=== PATIENT | male | born 1960 | race Caucasian/White ===

== ENCOUNTER 2016-10-09 06:00 | Day surgery (SDC) | payer OTHER ==
[2016-10-08 16:38] LABS: BASOPHILS 0.3 % (0-2); EOSINOPHILS 2.5 % (0-7); HEMATOCRIT 45.5 % (42.0-54.0); HEMOGLOBIN 15.4 g/dL (13.5-17.5); IMMATURE GRANULOCYTES 0.1 % (0-5); LYMPHOCYTES 30.3 % (15-50); MCH 30.7 pg (26.0-34.0); MCHC 33.8 g/dL (31.0-37.0); MCV 90.6 fL (80.0-100.0); MEAN PLATELET VOLUME 9.2 fL (7.4-10.4); MONOCYTES 8.2 % (2-11); NEUTROPHILS 58.6 % (40-80); PLATELET COUNT 247 10x3/uL (130-400); RBC 5.02 10x6/uL (4.20-6.10); RDW 12.2 % (11.5-14.5); WBC 7.1 10x3/uL (4.8-10.8)
[2016-10-08 17:04] LABS: CALC OSMOLALITY 276 mosm/kg (275-300); CALCIUM 8.9 mg/dL (8.5-10.1); CARBON DIOXIDE 28.8 mmol/L (21.0-32.0); CHLORIDE - SERUM 103 mmol/L (98-107); GLUCOSE 91 mg/dL (74-106); SODIUM 139 mmol/L (136-145); UREA NITROGEN 11 mg/dL (7-18); eGFR NON AFRICAN AMERICAN 82 mL/min (90-120)
[~2016-10-09] VITALS: Ht 177.8 cm; Wt 71.7 kg
--- NOTE | ~2016-10-09 | OP ---
PATIENT NAME: CHIN JARAMILLO MEDICAL RECORD: [id number] :60 LOCATION:D.OPS ADMISSION DATE: SURGEON: NASIR PERSON MD DATE OF OPERATION: 10/09/2016 PREOPERATIVE DIAGNOSIS: Recurrent right inguinal hernia. POSTOPERATIVE DIAGNOSIS: Recurrent right inguinal hernia. PROCEDURE: Right inguinal hernia repair with medium PHS mesh. SURGEON: Nasir Person MD. REPORT OF PROCEDURE: The patient's left groin was prepped and draped in sterile fashion. The previous oblique incision was made overlying the inguinal ligament. Electrocautery was used to dissect through the subcutaneous tissue to the external oblique fascia. This fascia was incised with electrocautery and opened up to the external ring. There was some scar tissue present from previous inguinal hernia repair without mesh. The sutures in place were cut free. At this point, we were able to dissect up the patient's spermatic cord and place a [place] around it. An indirect hernia defect, a little over a centimeter in size was noted. This was fat-containing. We dissected free the fatty tissue and dunked it back into the peritoneal cavity. We opened up the preperitoneal space of Retzius and inserted a medium PHS mesh. This was sutured down on all 4 sides using interrupted 0 Vicryls. We inspected the area to see if there was evidence of an ilioinguinal nerve and I never found this. The mesh was irrigated out with normal saline and care was taken to make sure there was no sign of any bleeding. The external oblique fascia was then closed with running 2-0 Vicryl, Dany's was closed with interrupted 3-0 Vicryl and the skin was closed with running subcutaneous 5-0 Monocryl. A 10 mL of 0.25% Marcaine with epinephrine were infused into the surrounding tissues and the wounds were dressed appropriately. COMPLICATIONS: None. CONDITION: Stable. ANESTHESIA: General endotracheal and local. BLOOD LOSS: Minimal. TRANSINT:[id number] Voice Confirmation ID: [id number] DOCUMENT ID: [id number] NASIR PERSON MD CC: NOE JEAN-BAPTISTE MD [id number] DICTATION DATE: 10/09/16 0843 SAMPLE COORDINATOR: 10/09/16 1048 [facility] [address] [place] [address]
[2016-10-09 05:48] VITALS: BP 120/67; Ht 177.8 cm; Wt 71.7 kg
[2016-10-09] MEDS ORDERED: HYDROCODONE-APA1 TAB PO (08:39)
== END 2016-10-09 11:15 | disposition home or self-care (01) ==
LOC: D.OPS 06:00
PROVIDERS: Surgery
DX: K40.90 Unilateral inguinal hernia, without obstruction or gangrene, not specified as recurrent (principal); Z01.812 Encounter for preprocedural laboratory examination

== ENCOUNTER → 2018-08-09 15:28 | Outpatient (CLI) | payer BC ==
[2016-10-09 05:48] VITALS: BMI 22.7
[~2018-08-09 15:28] MED LIST: HYDROCODONE-APA1 TAB PO
[2018-08-09 15:37] LABS: BASOPHILS 0.2 % (0-2); HEMATOCRIT 43.2 % (42.0-54.0); IMMATURE GRANULOCYTES 0.3 % (0-5); LYMPHOCYTES 9.4 % (15-50); MCH 30.7 pg (26.0-34.0); MCHC 34.7 g/dL (31.0-37.0); MCV 88.5 fL (80.0-100.0); MEAN PLATELET VOLUME 8.9 fL (7.4-10.4); MONOCYTES 8.5 % (2-11); NEUTROPHILS 79.6 % (40-80); RBC 4.88 10x6/uL (4.20-6.10); RDW 13.4 % (11.5-14.5); WBC 12.9 10x3/uL (4.8-10.8)
[2018-08-09 15:39] LABS: PLATELET COUNT 132 10x3/uL (130-400)
== END | disposition home or self-care (01) ==
LOC: D.LABREF 15:28
DX: D69.3 Immune thrombocytopenic purpura (principal)

== ENCOUNTER → 2018-09-20 18:21 | Outpatient (CLI) | payer BC ==
[2016-10-09 05:48] VITALS: BMI 22.7
[2018-09-20 19:13] LABS: BASOPHILS 0.2 % (0-2); EOSINOPHILS 0.2 % (0-7); HEMATOCRIT 42.7 % (42.0-54.0); HEMOGLOBIN 14.6 g/dL (13.5-17.5); IMMATURE GRANULOCYTES 0.5 % (0-5); LYMPHOCYTES 10.9 % (15-50); MCH 30.5 pg (26.0-34.0); MCHC 34.2 g/dL (31.0-37.0); MCV 89.1 fL (80.0-100.0); MEAN PLATELET VOLUME 12.1 fL (7.4-10.4); MONOCYTES 6.5 % (2-11); NEUTROPHILS 81.7 % (40-80); RBC 4.79 10x6/uL (4.20-6.10); RDW 13.5 % (11.5-14.5); WBC 13.2 10x3/uL (4.8-10.8)
[2018-09-20 19:54] LABS: PLATELET COUNT 21 10x3/uL (130-400)
[2018-09-20 20:06] LABS: PLATELET ESTIMATE DECREASED
== END | disposition home or self-care (01) ==
LOC: D.LABREF 18:21
DX: D69.3 Immune thrombocytopenic purpura (principal)

== ENCOUNTER → 2018-09-27 16:52 | Outpatient (CLI) | payer BC ==
[2016-10-09 05:48] VITALS: BMI 22.7
[2018-09-27 17:08] LABS: BASOPHILS 0.1 % (0-2); EOSINOPHILS 0.2 % (0-7); HEMATOCRIT 41.1 % (42.0-54.0); IMMATURE GRANULOCYTES 0.3 % (0-5); LYMPHOCYTES 6.4 % (15-50); MCH 30.3 pg (26.0-34.0); MCHC 34.1 g/dL (31.0-37.0); MEAN PLATELET VOLUME 13.4 fL (7.4-10.4); MONOCYTES 6.1 % (2-11); NEUTROPHILS 86.9 % (40-80); PLATELET COUNT 20 10x3/uL (130-400); RBC 4.62 10x6/uL (4.20-6.10); RDW 13.5 % (11.5-14.5); WBC 11.8 10x3/uL (4.8-10.8)
[2018-09-27 17:10] LABS: PLATELET ESTIMATE DECREASED
== END | disposition home or self-care (01) ==
LOC: D.LABREF 16:52
DX: D69.3 Immune thrombocytopenic purpura (principal)

== ENCOUNTER → 2018-10-04 17:40 | Outpatient (CLI) | payer BC ==
[2016-10-09 05:48] VITALS: BMI 22.7
[2018-10-04 20:01] LABS: BASOPHILS 0.1 % (0-2); EOSINOPHILS 0 % (0-7); HEMATOCRIT 43.9 % (42.0-54.0); HEMOGLOBIN 15.1 g/dL (13.5-17.5); IMMATURE GRANULOCYTES 0.4 % (0-5); LYMPHOCYTES 5.8 % (15-50); MCH 30.8 pg (26.0-34.0); MCHC 34.4 g/dL (31.0-37.0); MCV 89.4 fL (80.0-100.0); MEAN PLATELET VOLUME 9.6 fL (7.4-10.4); NEUTROPHILS 90.7 % (40-80); PLATELET COUNT 77 10x3/uL (130-400); RBC 4.91 10x6/uL (4.20-6.10); RDW 13.5 % (11.5-14.5); WBC 12.5 10x3/uL (4.8-10.8)
[2018-10-04 22:35] LABS: PLATELET ESTIMATE DECREASED
== END | disposition home or self-care (01) ==
LOC: D.LABREF 17:40
PROVIDERS: ATTEND Legal Medicine
DX: D69.3 Immune thrombocytopenic purpura (principal)

== ENCOUNTER → 2018-10-18 17:12 | Outpatient (CLI) | payer BC ==
[2016-10-09 05:48] VITALS: BMI 22.7
[2018-10-18 18:12] LABS: BASOPHILS 0.1 % (0-2); EOSINOPHILS 0 % (0-7); HEMATOCRIT 44.9 % (42.0-54.0); HEMOGLOBIN 15.2 g/dL (13.5-17.5); IMMATURE GRANULOCYTES 0.5 % (0-5); MCH 30.5 pg (26.0-34.0); MCHC 33.9 g/dL (31.0-37.0); MCV 90.2 fL (80.0-100.0); MEAN PLATELET VOLUME 10.6 fL (7.4-10.4); MONOCYTES 4.4 % (2-11); RBC 4.98 10x6/uL (4.20-6.10); RDW 13.6 % (11.5-14.5); WBC 12.4 10x3/uL (4.8-10.8)
[2018-10-18 18:14] LABS: PLATELET COUNT 39 10x3/uL (130-400)
[2018-10-18 18:39] LABS: PLATELET ESTIMATE DECREASED
== END | disposition home or self-care (01) ==
LOC: D.LABREF 17:12
PROVIDERS: ATTEND Legal Medicine
DX: D69.3 Immune thrombocytopenic purpura (principal)